=== PATIENT | male | born 1965 | race Caucasian/White ===

== ENCOUNTER → 2024-02-16 08:41 | Outpatient (REF) | payer BC, SELFPAY ==
[2024-02-16 10:11] LABS: % Basophils 0.9 % (0-2); % Eosinophils 3.9 % (0-6); % Immature Granulocytes 0.5 % (0-0.5); % Lymphocytes 10.2 % (20.5-51.1); % Monocytes 14.4 % (1.7-9.3); % Neutrophils 70.1 % (42.2-75.2); Absolute Eosinophils 0.2 10^3/uL (0-0.7); Absolute Lymphocytes 0.4 10^3/uL (1.2-3.4); Absolute Monocytes 0.6 10^3/uL (0.1-0.6); Hematocrit 35.1 % (39.0-52.0); Hemoglobin 11.3 g/dL (13.0-18.0); Mean Corp Hgb Conc. 32.2 g/dL (33.0-37.0); Mean Corpuscular Hgb 31.2 pg (27.0-31.0); Nucleated Red Blood Cells % 0 % (-); Platelet Count 303 10^3/uL (130-400); Red Blood Cell Count 3.62 10^6/uL (4.70-6.10); Red Cell Dist. Width 14.1 % (11.5-14.5); White Blood Cell Count 4.3 10^3/uL (4.8-10.8)
[2024-02-16 10:25] LABS: ALT (SGPT) 29 U/L (0-50); AST (SGOT) 29 U/L (17-59); Albumin 3.9 g/dl (3.5-5.0); Alkaline Phosphatase 106 U/L (38-126); Blood Urea Nitrogen 23 mg/dl (9-20); Calcium 9.5 mg/dl (8.4-10.2); Carbon Dioxide 29 mmol/L (22-30); Chloride 104 mmol/L (98-107); Glucose 97 mg/dl (70-99); HDL Cholesterol 41 mg/dl; LDL Cholesterol, Calculated 85 mg/dl; Potassium 5.3 mmol/L (3.5-5.1); Sodium 140 mmol/L (135-145); Total Bilirubin 0.5 mg/dl (0.2-1.3); Total Cholesterol 148 mg/dl (50-199); Total Protein 6.9 g/dl (6.3-8.2); Triglyceride 114 mg/dl (10-149); Very Low Density Lipoprotein 22 mg/dl (0-30); eGFR > 60.00
[2024-02-16 10:31] LABS: Free T4 1.26 ng/dl (0.78-2.19)
[2024-02-16 10:45] LABS: PSA, Total - Screen 0.32 ng/ml (0.0-4.0); TSH 1.97 uIU/ml (0.47-4.68)
== END ==
LOC: REG 08:41
PROVIDERS: ATTENDING PHYSICIAN Family Medicine; REFERRING PHYSICIAN Family Medicine Geriatric Medicine
DX: C61 Malignant neoplasm of prostate (principal); Z00.00 Encounter for general adult medical examination without abnormal findings; I10 Essential (primary) hypertension; R73.03 Prediabetes; N52.01 Erectile dysfunction due to arterial insufficiency
CPT/HCPCS: 36415; 80053; 80061; 83036; 84439; 84443; 85025; G0103

== ENCOUNTER → 2024-06-09 16:11 | Outpatient (REF) | payer BC, SELFPAY ==
[2024-06-09 20:37] LABS: PSA, Total - Diagnostic 0.11 ng/ml (0.0-4.0)
[2024-06-11 21:03] LABS: % Free Testosterone 1.7 % (1.6-2.9); Free Testosterone 68 pg/mL (47-244); Sex Hormone Binding Globulin 37 nmol/L (19-76); Total Testosterone 395 ng/dL (300-890)
== END ==
LOC: REG 16:11
PROVIDERS: ATTENDING PHYSICIAN Family Medicine
DX: C61 Malignant neoplasm of prostate (principal); Z79.818 Long term (current) use of other agents affecting estrogen receptors and estrogen levels
CPT/HCPCS: 36415; 84153; 84270; 84402; 84403

== ENCOUNTER 2024-06-09 16:12 | Outpatient (RCR) | payer BC, SELFPAY | END 2024-06-09 23:59 | disposition home or self-care (01) | LOC: RPT 16:12 | PROVIDERS: ATTENDING PHYSICIAN Family Medicine Geriatric Medicine | DX: M62.89 Other specified disorders of muscle (principal); Z73.6 Limitation of activities due to disability | CPT/HCPCS: 97110; 97112; 97161; 97530 ==

== ENCOUNTER 2024-06-30 16:25 | Outpatient (RCR) | payer BC, SELFPAY | END 2024-06-30 23:59 | disposition home or self-care (01) | LOC: RPT 16:25 | PROVIDERS: ATTENDING PHYSICIAN Family Medicine Geriatric Medicine | DX: M62.89 Other specified disorders of muscle (principal); Z73.6 Limitation of activities due to disability | CPT/HCPCS: 97110; 97112; 97140; 97530 ==

== ENCOUNTER 2024-07-24 15:13 | Emergency (ER) | payer BC, SELFPAY ==
[2024-07-24 15:23] VITALS: BP 155/99
--- NOTE | 2024-07-24 16:22 | ED.GENMED ---
History of Present Illness
General
Chief Complaint: Extremity Pain (non-traumatic)
Source: patient
Exam Limitations: none
Time Seen by Provider: 07/24/24 15:57
Nursing documentation reviewed up to this point in time: agreed with
History of Present Illness
History of Present Illness:
Patient is a 59-year-old male presenting with left ankle injury. Patient states about an hour or so ago he was blowing leaves in his yard when he accidentally stepped in a small ditch inverting his left ankle. Patient was able to catch himself and
he did not fall to the ground. Patient denies any head strike or sustaining other injuries. Patient presents with pain in his left ankle, worse with range of motion. He has been able to ambulate although this does cause pain. Patient denies any
numbness/tingling of left ankle/foot.
No other concerns today.
Past History
Past History
ED Past Medical History: HTN and Other (Kidney stones); Negative Hypercholesterolemia, IDDM or NIDDM
Social History
Tobacco: Non-smoker
Review of Systems
Review of Systems
Allergies reviewed?: Yes
All Other Systems: ROS reviewed and negative except as documented in HPI and ROS
Phy Exam
Physical Exam
Physical Exam:
Vitals: Hypertensive, otherwise vital signs stable. Afebrile
General: Patient is well appearing, no acute distress
Skin: Warm and dry, no rashes or lesions
Head: Normocephalic, atraumatic
Throat: Protecting airway
Neck: Normal ROM, no cervical spine tenderness
Cardiac: Regular rate
Pulm: No apparent respiratory distress
Abdomen: Nondistended
Extremities: Tenderness and edema of left lateral malleolus. No tenderness of left medial malleolus. No tenderness at base of left fifth metatarsal head of left fibula. No midfoot tenderness or calcaneal tenderness. Left Achilles intact.
Palpable DP pulse left lower extremity. Left lower extremity neurovascular intact. Left knee atraumatic nontender full range of motion.
Neuro: Grossly intact
Psychiatric: Normal affect.
Course
Orders/Labs/Results
Orders:
Orders
07/24/24 15:26
Ankle, left 3 view CR [CR Ankle - Left Min 3 Views ] Urgent
Comment:
Reason For Exam: pain injury
07/24/24 16:21
Splints/Slings/Crut- Treatment ONCE
Location: Left
Type of Splint: Short Leg
Comment: w/ sugar tong
Vital Signs
Initial and Last Documented VS:
Initial Vital Signs
Temp Pulse Resp BP Pulse Ox
98.0 F 86 16 155/99 100
07/24/24 15:23 07/24/24 15:23 07/24/24 15:23 07/24/24 15:23 07/24/24 15:23
Last Documented Vital Signs
Temp Pulse Resp BP Pulse Ox
98.0 F 90 19 146/80 100
07/24/24 15:23 07/24/24 17:13 07/24/24 17:13 07/24/24 17:13 07/24/24 15:23
MDM/Problems Addressed
Differential Diagnosis Includes:
Not limited to: Ankle sprain, ankle fracture, foot sprain, foot fracture, Achilles tendon rupture, etc.
MDM/Problems Addressed:
59-year-old male presenting with left ankle pain following ankle inversion injury just prior to arrival. No head strike or other associated injuries. This was a mechanical trip and fall. Hypertensive, otherwise vital signs stable. Physical exam
as above. Patient does have swelling and tenderness over left lateral malleolus. No pain of left foot, base of left fifth metatarsal, or head of left fibula. Left knee atraumatic and nontender. Left lower extremity neurovascular intact. No
evidence of head or neck trauma. An x-ray was obtained which shows a small fracture of the distal fibula without displacement. Patient will be placed in a posterior short leg, sugar-tong splint and given crutches. Contact information given for
orthopedics for follow-up. Patient will call in the morning to schedule. Advised patient to remain nonweightbearing until seen by orthopedics. Advised rest, ice, elevation. Return precautions discussed with patient. Patient stable for
discharge. Case discussed with attending physician.
Chronic conditions affecting care:
N/A
Acute Exacerbation and/or Progression of Chronic Illness:
N/A
*Radiology
Radiology exam reviewed: preliminary read by ED provider (Left distal fibular fracture) and radiology read reviewed (Distal fibular fracture)
*Pulse Oximetry
Patient hypoxic: no
*EKG
Interpreted by ED Provider?: NA
*Medical Resident Interpretation
Rate: Medical Resident- N/A
*Critical Care Note
Total Time (30-74mins, 75-104mins- exclusive of procedures): Not Applicable
ED Attending Note
-
Portions of this chart may have been created with voice recognition software.� Occasional wrong word or��sound alike� substitutions may have occurred due to the inherent limitations of voice recognition software.
Discharge Plan
Departure
Patient Disposition: Home (Routine Discharge)
Date of Disposition: 07/24/24
Time of Disposition: 16:25
Patient with high blood pressure during this ER visit?: Yes
Condition: Good
Covid-19: Not Applicable
Discharge Problem:
Closed fracture of distal end of left fibula
Instructions: Ankle Fracture ED, BLOOD PRESSURE
Prescriptions:
No Action
lisinopril 2.5 MG tablet
2.5 mg PO DAILY Qty: 90 5RF
metoprolol succinate 50 mg Tablet Extended Release 24 Hr
50 mg PO DAILY
atorvastatin 80 MG tablet
80 mg PO QPM
aspirin 81 MG tablet,chewable
81 mg PO DAILY
naproxen sodium [Aleve] 220 mg capsule
440 mg PO BID PRN (Reason: pain) Qty: 1 0RF
tramadol 50 mg tablet
50 mg PO TID PRN (Reason: severe pain) Qty: 10 0RF
Referrals:
Cheryl Garcia MD [Family Provider] -
Ibrahima Villela MD [Active] - Follow up in 2-3 days
Activity Restrictions/Additional Instructions:
RETURN TO THE EMERGENCY DEPARTMENT WITH ANY NUMBNESS/TINGLING IN LEFT LEG/FOOT, SIGNIFICANT SWELLING IN LEFT ANKLE/FOOT, INTRACTABLE PAIN, OR ANY OTHER CONCERNS
-As discussed�your x-ray in the emergency department showed a small fracture of your left ankle
-You should remain nonweightbearing and utilize crutches until you are seen by orthopedics. Splint must stay on. You should continue to ice, left leg as often as possible. You can take Tylenol/Motrin as needed for discomfort.
-Follow-up with orthopedics in the next few days for further evaluation/management. The contact information has been provided for you above.
Monitor your symptoms closely and return to the emergency department with any acute worsening/new symptoms
Interventions
Interventions:
*Risk Screen - Suicide Last Done: 07/24/24 17:10
*General Assessment Last Done: 07/24/24 17:10
*Neglect/Abuse Screening Last Done: 07/24/24 15:47
*Nursing Disposition Last Done: 07/24/24 17:13
ED-Skin Assessment Last Done: 07/24/24 15:46
ED-Musculoskeletal Assessment Last Done: 07/24/24 15:46
Discharge Date and Time
Discharge Date/Time: 07/24/24 17:14
Print Language: SLOVAK
[2024-07-24 17:13] VITALS: BP 146/80
== END 2024-07-24 17:14 | disposition home or self-care (01) ==
LOC: EMR 15:13
PROVIDERS: EMERGENCY PHYSICIAN Emergency Medicine; FAMILY PHYSICIAN Family Medicine
DX: S82.832A Other fracture of upper and lower end of left fibula, initial encounter for closed fracture (principal); X50.1XXA Overexertion from prolonged static or awkward postures, initial encounter; I10 Essential (primary) hypertension
CPT/HCPCS: 99283; 29515; 73610

== ENCOUNTER 2024-08-04 17:21 | Outpatient (RCR) | payer BC, SELFPAY | END 2024-08-04 23:59 | disposition home or self-care (01) | LOC: RPT 17:21 | PROVIDERS: ATTENDING PHYSICIAN Family Medicine Geriatric Medicine | DX: M62.89 Other specified disorders of muscle (principal); Z73.6 Limitation of activities due to disability | CPT/HCPCS: 97110 ==

== ENCOUNTER 2024-08-25 18:20 | Outpatient (RCR) | payer BC, SELFPAY | END 2024-08-25 23:59 | disposition home or self-care (01) | LOC: RPT 18:20 | PROVIDERS: ATTENDING PHYSICIAN Family Medicine Geriatric Medicine | DX: M62.89 Other specified disorders of muscle (principal); Z73.6 Limitation of activities due to disability; C61 Malignant neoplasm of prostate; Z90.79 Acquired absence of other genital organ(s) | CPT/HCPCS: 97110 ==

== ENCOUNTER → 2024-09-13 07:51 | Outpatient (REF) | payer BC, SELFPAY ==
[2024-09-13 09:19] LABS: PSA, Total - Screen 0.11 ng/ml (0.0-4.0)
[2024-09-14 19:38] LABS: % Free Testosterone 1.8 % (1.6-2.9); Free Testosterone 61 pg/mL (47-244); Sex Hormone Binding Globulin 34 nmol/L (19-76); Total Testosterone 339 ng/dL (300-890)
== END ==
LOC: REG 07:51
PROVIDERS: ATTENDING PHYSICIAN Family Medicine Geriatric Medicine
DX: C61 Malignant neoplasm of prostate (principal); Z79.818 Long term (current) use of other agents affecting estrogen receptors and estrogen levels
CPT/HCPCS: 36415; 84270; 84402; 84403; G0103

== ENCOUNTER → 2024-09-27 08:14 | Outpatient (REF) | payer BC, SELFPAY ==
[2024-09-27 09:35] LABS: NT-proBNP 49.6 pg/ml
[2024-09-27 10:08] LABS: Blood Urea Nitrogen 29 mg/dl (9-20); Calcium 9.7 mg/dl (8.4-10.2); Carbon Dioxide 28 mmol/L (22-30); Chloride 104 mmol/L (98-107); Glucose 116 mg/dl (70-99); Potassium 5.2 mmol/L (3.5-5.1); Sodium 144 mmol/L (135-145); eGFR 38.21
== END ==
LOC: REG 08:14
PROVIDERS: ATTENDING PHYSICIAN Internal Medicine Interventional Cardiology; FAMILY PHYSICIAN Family Medicine
DX: I10 Essential (primary) hypertension (principal)
CPT/HCPCS: 36415; 80048; 83880

== ENCOUNTER → 2024-10-13 16:34 | Outpatient (REF) | payer BC, SELFPAY ==
[2024-10-13 17:55] LABS: Blood Urea Nitrogen 54 mg/dl (9-20); Calcium 9.3 mg/dl (8.4-10.2); Carbon Dioxide 28 mmol/L (22-30); Chloride 103 mmol/L (98-107); Glucose 123 mg/dl (70-99); Potassium 4.7 mmol/L (3.5-5.1); Sodium 142 mmol/L (135-145); eGFR 19.52
== END ==
LOC: REG 16:34
PROVIDERS: ATTENDING PHYSICIAN Physician Assistant; FAMILY PHYSICIAN Family Medicine
DX: I25.2 Old myocardial infarction (principal); I10 Essential (primary) hypertension
CPT/HCPCS: 36415; 80048

== ENCOUNTER → 2024-10-26 16:12 | Outpatient (REF) | payer BC, SELFPAY ==
[2024-10-26 17:34] LABS: Blood Urea Nitrogen 57 mg/dl (9-20); Calcium 9.1 mg/dl (8.4-10.2); Carbon Dioxide 26 mmol/L (22-30); Chloride 106 mmol/L (98-107); Glucose 144 mg/dl (70-99); Potassium 5.3 mmol/L (3.5-5.1); Sodium 145 mmol/L (135-145); eGFR 18.87
== END ==
LOC: REG 16:12
PROVIDERS: ATTENDING PHYSICIAN Physician Assistant; FAMILY PHYSICIAN Family Medicine
DX: N35.919 Unspecified urethral stricture, male, unspecified site (principal)
CPT/HCPCS: 36415; 80048

== ENCOUNTER 2024-11-10 17:58 | Outpatient (RCR) | payer BC, SELFPAY | END 2024-11-10 23:59 | disposition home or self-care (01) | LOC: RPT 17:58 | PROVIDERS: ATTENDING PHYSICIAN Family Medicine Geriatric Medicine | DX: M62.89 Other specified disorders of muscle (principal); Z73.6 Limitation of activities due to disability; C61 Malignant neoplasm of prostate; Z90.79 Acquired absence of other genital organ(s); R33.9 Retention of urine, unspecified | CPT/HCPCS: 97110; 97140 ==

== ENCOUNTER 2024-11-23 20:37 | Inpatient (IN) | payer BC, SELFPAY ==
[2024-11-23 16:06] VITALS: BP 211/125
[2024-11-23 16:42] LABS: % Basophils 0.6 % (0-2); % Immature Granulocytes 0.2 % (0-0.5); % Lymphocytes 9.5 % (20.5-51.1); % Monocytes 10.8 % (1.7-9.3); % Neutrophils 75.9 % (42.2-75.2); Absolute Eosinophils 0.2 10^3/uL (0-0.7); Absolute Lymphocytes 0.6 10^3/uL (1.2-3.4); Absolute Monocytes 0.7 10^3/uL (0.1-0.6); Hematocrit 33.9 % (39.0-52.0); Hemoglobin 11.2 g/dL (13.0-18.0); Mean Corpuscular Hgb 29.4 pg (27.0-31.0); Mean Platelet Volume 9.7 fL (7.4-10.4); Nucleated Red Blood Cells % 0 % (-); Platelet Count 224 10^3/uL (130-400); Red Blood Cell Count 3.81 10^6/uL (4.70-6.10); Red Cell Dist. Width 13.9 % (11.5-14.5); White Blood Cell Count 6.6 10^3/uL (4.8-10.8)
[2024-11-23 17:00] LABS: ALT (SGPT) 21 U/L (0-50); AST (SGOT) 21 U/L (17-59); Albumin 4.5 g/dl (3.5-5.0); Alkaline Phosphatase 96 U/L (38-126); Blood Urea Nitrogen 66 mg/dl (9-20); Calcium 9.2 mg/dl (8.4-10.2); Carbon Dioxide 23 mmol/L (22-30); Chloride 107 mmol/L (98-107); Glucose 116 mg/dl (70-99); Potassium 5.2 mmol/L (3.5-5.1); Sodium 141 mmol/L (135-145); Total Bilirubin 0.5 mg/dl (0.2-1.3); Total Protein 7.4 g/dl (6.3-8.2); eGFR 14.83
[2024-11-23 17:43] VITALS: BMI 35.3
[2024-11-23 17:45] VITALS: BP 180/98
[2024-11-23 18:00] VITALS: BP 176/93
--- NOTE | 2024-11-23 18:57 | ED.GENMED ---
History of Present Illness
General
Chief Complaint: Abnormal Lab Value
Source: patient and spouse
Time Seen by Provider: 11/23/24 17:22
History of Present Illness
History of Present Illness:
59-year-old male with history of hypertension, hyperlipidemia, coronary disease, obstructive sleep apnea and prostate cancer treated with radiation. Patient presents with outpatient labs that showed renal failure. Of note, the patient had a bump
in his creatinine started back in September where bumped to 2.0 and then 3.5. Patient states he is not really aware of these numbers and has not seen a kidney specialist. He has been seeing a urologist and they advised him to start straight cathing
himself over the last few weeks. Patient states he has not been drinking a lot of fluids because he is afraid to have to straight cath himself throughout the night. Patient states he has been getting normal urine out. No fevers. No vomiting.
states that he has been seeing the urologist. Has not seen a sash installer. These labs were routine labs being ordered by cardiology
Past History
Past History
ED Past Medical History: CAD, HTN, Hypercholesterolemia and Other (Kidney stones, obstructive sleep apnea, prostate cancer)
Social History
Tobacco: Non-smoker
Phy Exam
Physical Exam
Physical Exam:
CONSTITUTIONAL Patient alert and oriented to person, place and time. Well-appearing. Vital signs reviewed.
HEAD atraumatic, normocephalic.
EYES eyelids normal to inspection, Extraocular muscles intact, Conjunctiva normal, Sclera normal.
NECK normal range of motion, Trachea midline, no jugular venous distention.
RESPIRATORY CHEST No respiratory distress noted, Chest expansion equal, Bilateral breath sounds clear.
CARDIOVASCULAR regular rate and rhythm, Heart sounds normal.
BACK normal inspection, no obvious deformities
UPPER EXTREMITY range of motion normal, Motor strength normal, no cyanosis, no edema.
LOWER EXTREMITY range of motion normal, Motor strength normal, no cyanosis, no edema.
NEURO Speech normal, No focal motor deficits, Jeff coma scale 15, Memory normal, Cranial Nerves intact to screening exam.
SKIN skin warm, dry, and normal in color.
Course
Orders/Labs/Results
Orders:
Orders
11/23/24 16:10
Electrocardiogram (*1) Urgent
Reason for Study: Hypertension, Benign
EKG- Treatment ONCE
11/23/24 16:18
Complete Blood Count/With Diff Urgent
Comprehensive Metabolic Panel Urgent
11/23/24 19:01
Urinalysis Reflex To Culture Urgent
Date Specimen was Collected: 11/23/24
Time Specimen was Collected: 19:01
Abnormal Lab Results
11/23/24
16:18
RBC 3.81 L 10^6/uL
(4.70-6.10)
Hgb 11.2 L g/dL
(13.0-18.0)
Hct 33.9 L %
(39.0-52.0)
Absolute Lymphs (auto) 0.6 L 10^3/uL
(1.2-3.4)
Absolute Monos (auto) 0.7 H 10^3/uL
(0.1-0.6)
Neutrophils % 75.9 H %
(42.2-75.2)
Lymphocytes % 9.5 L %
(20.5-51.1)
Monocytes % 10.8 H %
(1.7-9.3)
Potassium 5.2 H mmol/L
(3.5-5.1)
BUN 66 H mg/dl
(9-20)
Creatinine 4.4 H* mg/dL
(0.7-1.3)
Glucose 116 H mg/dl
(70-99)
11/23/24 16:18
11/23/24 16:18
Vital Signs
Initial and Last Documented VS:
Initial Vital Signs
Temp Pulse Resp BP Pulse Ox
98.5 F 94 18 211/125 98
11/23/24 16:06 11/23/24 16:06 11/23/24 16:06 11/23/24 16:06 11/23/24 16:06
Last Documented Vital Signs
Temp Pulse Resp BP Pulse Ox
98.5 F 82 9 176/93 98
11/23/24 16:06 11/23/24 18:15 11/23/24 18:15 11/23/24 18:00 11/23/24 18:15
MDM/Problems Addressed
MDM/Problems Addressed:
Acute renal failure, acute severe uncontrolled hypertension
*Pulse Oximetry
Patient hypoxic: no
*EKG
Interpreted by ED Provider?: Yes
Interpretation: normal
Rate: normal
Rhythm: sinus
[place]: normal axis
Ischemia: no ischemia
*Primary Care Nurse Interpretation
Rate: normal
Interpretation: normal
Rhythm: sinus
*Critical Care Note
Total Time (30-74mins, 75-104mins- exclusive of procedures): Not Applicable
Data Reviewed
Review of Other/Old Records Reveals: Labs
Source: patient and spouse
Prescriptions/Medications Considered But Not Given:
Considered antihypertensives but no blood pressure improving. Patient states he often does have high blood pressure when he comes to the hospital
Patient Management
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 Continue straight cath and gentle fluids)
Escalation/DeEscalation of care consider admission/obs:
Awake and alert. Patient is performing a straight cath urine emergency department. Will watch the output. Admit. Check ultrasound the kidneys
ED Attending Note
-
Portions of this chart may have been created with voice recognition software.� Occasional wrong word or��sound alike� substitutions may have occurred due to the inherent limitations of voice recognition software.
Discharge Plan
Departure
Patient Disposition: Admit
Date of Disposition: 11/23/24
Time of Disposition: 19:26
Admit to: Med/Surg
Presentation/result/management discussed w/ accepting MD/DO: Hospitalist
Discharge Problem:
Acute renal failure, Uncontrolled hypertension
Prescriptions:
No Action
metoprolol succinate 50 mg Tablet Extended Release 24 Hr
50 mg PO DAILY
atorvastatin 80 MG tablet
80 mg PO QPM
aspirin 81 MG tablet,chewable
81 mg PO DAILY
naproxen sodium [Aleve] 220 mg capsule
440 mg PO BID PRN (Reason: pain) Qty: 1 0RF
tamsulosin 0.4 mg Capsule
0.4 mg PO BID
ezetimibe 10 mg Tablet
10 mg PO DAILY
mirabegron 50 mg Tablet Extended Release 24 Hr
50 mg PO DAILY
Referrals:
Cheryl Garcia MD [Family Provider] -
Interventions
Interventions:
*Risk Screen - Suicide Last Done: 11/23/24 16:06
*General Assessment Last Done: 11/23/24 17:44
*Neglect/Abuse Screening Last Done: 11/23/24 16:06
*ED- Fall Risk Assessment Last Done: 11/23/24 17:44
*ED COVID-19 Vaccine History Last Done: 11/23/24 16:06
Discharge Date and Time
Print Language: HUNGARIAN
--- NOTE | 2024-11-23 19:41 | HPS.HSE ---
Addendum entered and electronically signed by Placido Mckinney DO 11/23/24 21:32:
Patient seen and examined independently. Agree with findings and plan as set forth by CHING Perez.
Patient is a59y M with PMH significant for hypertension and prostate cancer s/p XRT who presents to ED for evaluation after outpatient labs that showed progressive renal function decline. Patient notes that he developed difficulties with
urination in the Summer on 2023. He initially had evidence of urinary retention and had a indwelling Miller for a short time. He has been followed by Dr. Morataya and started a self-cath regimen about one month ago. He was advised to change his
frequency to q3h; however, he did not have sufficient supplies to do so. In an attempt to conserve supplies while awaiting insurance approval - patient decreased his oral fluid intake and compromised on cath schedule to about 4-5 times daily.
Patient denies any specific complaints. He has no fevers / chills, N/V, abdominal pain or flank pain.
He notes that urine has not significantly changes in color / quantity.
He does void a small amount at times between cathing.
Ass:
SRI / CKD - Unknown Stage
Hyperkalemia
Chronic Urinary Retention
Prostate Cancer s/p XRT
ASCVD
Hypertension
ALAN
Plan:
Admit for further evaluation and treatment.
Suspect combination of pre and post-renal etiologies for renal impairment.
US done but report is still pending.
Reviewed with Nephrology and Urology.
IVFs overnight.
Continue self-cath regimen for now.
Hold Myrbetriq. Continue tamsulosin.
Continue current CV med regimen.
Follow for changes in renal function.
Original Note:
Family Physician
-
Family Physician: Cheryl Garcia
Chief Complaint
-
eevated creatine
History of Present Illness
59-year-old male with history of hypertension, hyperlipidemia, coronary disease, obstructive sleep apnea and prostate cancer treated with radiation. Patient presents with outpatient labs that showed renal failure.patient with history of prostate
cancer s/p proctectomy and radiation. after few months, he was noted to have trouble urinating for which he underwent balloon therapy. he had miller cath for some time. then he was trouble fully empty the bladder. he was advised to straight cath. he
is been doing straight cath 3-4 times a days. his urology asked him to do every 3 hours, but due to lack of supplies, he is only doing 3-4 times. he is thirsty, he has not been drinking a lots of fluids because he is is afraid to have to to
straight cath himself throughout the night. Patient states he has been getting normal urine out. his dump worker ordered routine lab and was noted to have elevated creatine which prompted him to come to the ER. mirabegron was added by urology few
weeks ago. patient stated very tired, nauseous. denied fever, chills, chest pain,sob. denied abdominal pain,vomiting or diarrhea. denied hematuria.
upon arrival he was noted to have creatinine of 4.4. patient received fluids in ER.admitting for further management.
Medical History
Past Medical History
Past Medical History: Reports Other
Additional Past Medical History:
HTN
hydronephrosis
urinary calculi
cad
kidney stones
Alan
prostate ca
Past Surgical History: Reports Other
Additional Past Surgical History:
wisdom teeth extraction
kidney stone retrieval
coronary artery bypass graft
prostatectomy and lymphadenectomy
Social History
Tobacco: Former Smoker
Alcohol: None
Drug: None
Personal: Single
Living: Other (girlfriend)
Employment: Employed
Family History
Family History: Not pertinent
Allergies / Home Medications
Allergies reflects when Allergies were last updated in [facility].
Home Medications with original date entered in [facility]
Allergy/Medication List:
Allergies
Allergy/AdvReac Type Severity Reaction Status Date / Time
pollen extracts Allergy nasal Verified 11/23/24 16:09
congestion
Home Medications
metoprolol succinate 50 mg tablet,extended release 24 hr 25 mg PO BID Blood Pressure 06/04/23
aspirin 81 mg chewable tablet 81 mg PO DAILY Blood Clot Prevention/Tx 06/11/23
atorvastatin 80 mg tablet 80 mg PO QPM High Cholesterol 06/11/23
ezetimibe 10 mg tablet 10 mg PO DAILY 11/23/24
mirabegron 50 mg tablet,extended release 24 hr 50 mg PO DAILY 11/23/24
tamsulosin 0.4 mg capsule 0.4 mg PO BID 11/23/24
Review of Systems
-
Constitutional: Reports No Symptoms
EENT: Reports No Symptoms
Respiratory: Reports No Symptoms
Cardiac: Reports No Symptoms
Abdomen/GI: Reports No Symptoms
: Reports No Symptoms
Musculoskeletal: Reports No Symptoms
Skin: Reports No Symptoms
Neurological: Reports Weakness
Endocrine: Reports No Symptoms
Hematologic/Lymphatic: Reports No Symptoms
Psych: Reports No Symptoms
Physical Exam
Vital Signs
Vital Signs
Temp Pulse Resp BP Pulse Ox
98.5 F 82 9 176/93 98
11/23/24 16:06 11/23/24 18:15 11/23/24 18:15 11/23/24 18:00 11/23/24 18:15
Physical Exam
General: Well Developed, Well Nourished and No Apparent Distress
HEENT: NormoCephalic, Moist mucous membranes and Atraumatic
Respiratory: Clear
Cardiac: S1/S2 and Regular Rhythm; No Murmur or Rub
GI: Soft, Non Tender, Non Distended and Normal Bowel Sounds; No Organomegaly
Rectal: Deferred by Provider
Musculoskeletal: No Clubbing, No Cyanosis and No Edema
Skin: No Rash
Neuro: AO x 3 and Nonfocal/grossly intact
Psych: Calm
Laboratory Results
-
11/23/24 16:18
11/23/24 16:18
Laboratory Results
Total Bilirubin 0.5 mg/dl (0.2-1.3) 11/23/24 16:18
AST 21 U/L (17-59) 11/23/24 16:18
ALT 21 U/L (0-50) 11/23/24 16:18
Alkaline Phosphatase 96 U/L (38-126) 11/23/24 16:18
Data Reviewed
-
Lab Data: Labs Reviewed by me
Impression/Plan
-
#acute kidney injury/hyperkalemia likely dehydration
-cr 4.4, K 5.2
-fluids continued
-BMP in am
-nephrology consulted
-renal US ordered
#CAD
#CABG
#cardiac stents
-asa continued
#HLD
-statin continued
#HTN
-metoprolol continued with hold parameter
#BPH
#hxt of urinary retention
#hxt of prostate cancer s/p radiation and prostatectomy
-Flomax continued
-hold mirabegron
#DVT Prophylaxis
-heparin sq
#CODE status
-full code
[2024-11-23 19:45] VITALS: BP 156/95
[2024-11-23 19:51] LABS: Urine Albumin Negative (Neg - Trace); Urine Bilirubin Negative (Negative); Urine Character Clear (Clear); Urine Color Yellow; Urine Glucose Negative (Negative); Urine Ketone Negative (Negative); Urine Leukocyte 3+ (Negative); Urine Nitrite Negative (Negative); Urine Occult Blood 4+ (Negative); Urine Specific Gravity 1.005 (<1.030); Urine Urobilinogen Negative (Neg - 1+)
--- NOTE | 2024-11-23 19:51 | EDRN ---
Pt with hx prostate cancer, prostatectomy and radiation. Pt has been having trouble emptying his bladder, has been straight cathing himself for few weeks. Pt had routine lab work done and was told his kidney function was elevated and instructed to
go to the hospital for evaluation. Pt denies hx of kidney issues. Pt making normal amount urine - clear. Last straight cath in ED = 550ml, specimen sent. Pt denies fever/chills/cough, abd pain, nausea/vomiting. 'I feel fine.'
[2024-11-23 19:59] LABS: Urine Bacteria Few (Negative); Urine Squamous Cell 0-2 /LPF (Few)
[2024-11-23 20:00] VITALS: BP 162/96
[2024-11-23 22:15] VITALS: BP 168/94; BMI 36.4
[2024-11-23] MEDS: NSS 1000 IV (22:41)
[2024-11-24] VITALS (7 sets, daily range): BP systolic 149–179; BP diastolic 91–115
--- NOTE | 2024-11-24 00:10 | PTCARENOTE ---
Pt admitted to 1 Acute. AAOx3. No c/o pain. Pt self straight cath himself. Pt was bladder scanned post void. Pt has 375 ml residual. Will scan q6. pt appears comfortable in bed and call hopper within reach.
--- NOTE | 2024-11-24 06:07 | CON.MD ---
Consultation - Medical
-
see dictated note
pt with prostate ca- underwent robotic prostatectomy with dr smart in 2022- T3 disease
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
developed bladder neck contracture- had procedure at [facility] in aug 2024- since then has had difficulty emptying bladder requring q3-4 hr cath
pt had cysto at [facility] about 3 weeks ago- reports BNC was open and small stone in bladder
he has had no problems with self cath
says last psa was under 1
has been making normal amounts of urine
baseline cr around 2- in sep was 3.5- now up to 4.5
u/s showed hydro- ct- hydro with ureteral dilation down to thickened/partially distended bladder- small stone in bladder
16 chinese miller placed without difficulty- 300cc of clear urine returned
plan
prostate cancer s/p prostatectomy and xrt- check psa
acute on chronic renal insuff- at least in part due to probable partial retention and neurogenic bladder- miller placed- await official read- trend urine output and cr
will follow
[2024-11-24] MEDS: ZETIA 10 MG PO (07:33)
[2024-11-24] MEDS: FLOMAX 0.4 MG PO ×2 (07:33→19:56)
[2024-11-24] MEDS: HEPARIN 5000 UNITS SC ×2 (07:34→19:56)
[2024-11-24] MEDS: LOW STRENGTH ASPIRIN 81 MG PO (07:34)
[2024-11-24] MEDS: TOPROL XL 25 MG PO ×2 (07:34→19:55)
[2024-11-24] MEDS: NSS 1000 IV ×3 (07:35→19:57)
[2024-11-24 09:40] LABS: Blood Urea Nitrogen 58 mg/dl (9-20); Carbon Dioxide 23 mmol/L (22-30); Chloride 107 mmol/L (98-107); Estimated Creatinine Clearance 28 ml/min; Glucose 101 mg/dl (70-99); Sodium 141 mmol/L (135-145); eGFR 15.69
[2024-11-24 09:57] LABS: PSA, Total - Diagnostic < 0.06 ng/ml (0.0-4.0)
[2024-11-24 10:49] LABS: Urine Sodium 60 mmol/L (30-90)
--- NOTE | 2024-11-24 10:54 | W.PN.HOSP.TC ---
Addendum entered and electronically signed by Zeeshan Samuel MD 11/24/24 16:13:
I saw and evaluated the patient. I reviewed the resident�s note and agree with findings and plan as documented in the resident�s note except for changes in my documentation.
59-year-old male with abnormal outpatient labs patient was seen by urology and started on self-catheterization regimen 1 month ago he was advised to do it every 3 hours but did not have the supply.
Seen earlier today. Late documentation
I saw and evaluated the patient. I reviewed the resident�s note and agree with findings and plan as documented in the resident�s note except for changes in my documentation
CAT scan-5 to 6 mm stone at or just to be on the left distal UVJ/bladder trigone. Partially duplicated left renal collecting system with 5 into 6 into 7 mm stone at the superior pole of the ureterovesical junction and may reflect additional
obstructing stone. Mild to moderate bilateral hydronephrosis and hydroureter. No right ureteral stone. Nonobstructing stones in the kidneys bilaterally. Mild bladder wall thickening and adjacent edema.
CVS: S1-S2 normal
Chest: CTA B/L
Abdomen: Soft, NT / Bowel sounds present
Extremities: No edema
# Acute kidney injury on CKD unknown stage
Hyperkalemia
Continue IV fluids
Possibly postrenal reasons as well
Russ placed.
Hold Myrbetriq and continue tamsulosin
Nephrolithiasis with hydronephrosis--on imaging however per discussion with urology no obstruction in the ureters
Follow creatinine and potassium
Urine sodium indicates renal reason
Creatinine has been elevated since September-unclear if patient also has CKD
Urology and Nephrology consulted.
# Prostate cancer with history of radiation and prostatectomy
# Coronary disease-with stent and CABG in 2021-continue aspirin, statin, Zetia, metoprolol
# Hyperlipidemia-continue Zetia, statin
# Hypertension-continue metoprolol
# Sleep apnea
# Nephrolithiasis with history of lithotripsy
# Migraines
# Diverticulosis
# Obesity with a BMI of 36
# DVT prophylaxis-subcutaneous heparin
D/W .
Original Note:
Today's Communication/Plan
-
Continue monitoring BMP after placement of Russ. Await final read of CT
Assessment / Plan
Assessment / Plan
Assessment:
59-year-old male with a past medical history of hypertension and prostate cancer for which he underwent robotic prostatectomy with Dr. Lmeus in 2022 then XRT then developed bladder neck contracture after which he had a procedure at [place] 3 weeks
ago, comes to the [facility] due to recent worsening of renal function. Patient had developed evidence of urinary retention after his procedure and was told to self cath around 1 month ago. He was told to do around every 3 hours
but he has been unable to do so due to being unable to afford supplies. Patient has decreased his oral fluid intake and has not been doing his cath is much as he should be. Patient was admitted for further treatment and underwent ultrasound and CT
scan. You started on IV fluids and urology and nephrology were consulted.
Plan:
#SRI secondary to urinary retention and dehydration
-Creatinine trending down from 4.5 to now 4.2
-fluids continued
-Continue monitoring BMP
-nephrology consulted, input appreciated
-renal US results as above
-Russ placed by urology team leading to 300 cc of clear urine
-Will see if draining of urine improves kidney function
-Awaiting final read of CT abdomen pelvis
# History of CAD
# History of CABG
# History of cardiac stents
-asa continued
#HLD
-statin continued
#HTN
-metoprolol continued
#hxt of prostate cancer s/p radiation and prostatectomy
-Flomax continued
-hold mirabegron
DVT Prophylaxis- heparin sq
Full code
Anticipated Discharge: Within 24 hours
Subjective/Interval History
-
Date of Service: November 24, 2024
Patient states that he has been feeling better and that he only has some mild fullness of his suprapubic area with very little tenderness.
Objective Data
-
Labs:
Laboratory Results
11/24/24
08:38
Sodium 141
Potassium 5.0
Chloride 107
Carbon Dioxide 23
BUN 58 H
Creatinine 4.2 H*
Glucose 101 H
Calcium Pending
Vital Signs:
Vital Signs
Temp Pulse Resp BP Pulse Ox
97.9 F 77 18 179/108 98
11/24/24 07:30 11/24/24 07:30 11/24/24 07:30 11/24/24 07:30 11/24/24 07:30
I&O
11/23/24 11/24/24 11/25/24
06:59 06:59 06:59
Intake Total 1620 / 1620 300 / 300
Output Total 3000 / 3000 2000 / 2000
Balance -1380 / -1380 -1700 / -1700
Review of Systems
-
History Source: Patient
Constitutional: Denies Fever, Weight Loss, Fatigue, Sleep Disturbance, Night Sweats or Chills
Respiratory: Denies Cough or Trouble Breathing
Cardiac: Denies Chest Pain or Palpitations
Abdomen/GI: Denies Abdominal Pain, Nausea or Vomiting
Genitourinary: Reports Difficulty Voiding; Denies Dysuria, Flank Pain or Discharge
Skin: Denies Itching or Rash
Endocrine: Reports No Symptoms
Allergy / Immunology: Reports No Symptoms
Physical Exam
-
General: Well Developed, Well Nourished, No Apparent Distress, Comfortable and Conversant
HEENT: Normocephalic and Atraumatic
Respiratory: Clear to Auscultation and Non Labored Respirations
Cardiac: Regular Rhythm and S1/S2; Negative Murmur
GI: Soft, Nontender, Nondistended and Normal Bowel Sounds
Genito-urinary: Supra Pubic Tube (Mild 09/23)
Musculoskeletal: No Clubbing, No Cyanosis and No Edema
Skin: Warm
Neuro: Awake, Alert, Oriented and No Motor Deficits
Psych: Calm
Data Reviewed
-
Ultrasound: Report Reviewed by me, Discussed with Physician and Discussed with Patient
Labs: Labs Reviewed by me, Discussed with Physician and Discussed with Patient
[2024-11-24 11:56] LABS: Calcium 9.3 mg/dl (8.4-10.2)
--- NOTE | 2024-11-24 15:54 | W.CON.NEPH ---
Consultation
-
Date/Time Consultation Requested: 11/23/242201
Date/Time Consultation Performed: 11/24/24 1615
Requesting Provider: Placido Worley
Performing Provider: Sarah Trevizo
Reason for Consultation: SRI with CKD
Medical History
-
History of Present Illness:
59y M with PMH significant for hypertension on metoprolol, HLD on Ezetamibe, statin and prostate cancer proctectomy, s/p XRT. tamsulosin BID who presents to ED for evaluation after outpatient labs that showed progressive renal function decline.
Patient notes that he developed difficulties with urination in the Summer on 2023. He initially had evidence of urinary retention and had a indwelling Miller for a short time. He has been followed by Dr. Morataya with unsuccessful interventions even
at [facility] and started a self-cath regimen about one month ago. He was advised to change his frequency to q3h; however, he did not have sufficient supplies to do so hence he decreased his oral fluid intake and compromised on cath schedule to about 4-5
times daily. He had routine labs done by cardiology and noted cr high at 4.5 and was asked to come to hospital. US shows hydronephrosis more on right. Since admit he put out 5lit of urine, miller was placed by today. Today cr down at 4.2.
Nephrology consulted for SRI.
Patient denies any specific complaints. He has no fevers / chills, N/V, abdominal pain or flank pain. No CP or sob.
Past Medical History
HTN
hydronephrosis
urinary calculi
cad
kidney stones
[place]
prostate ca
Past Surgical History: Other (wisdom teeth extraction kidney stone retrieval coronary artery bypass graft prostatectomy and lymphadenectomy)
Social History
Tobacco: Former Smoker
Alcohol: None
Drug: None
Personal: Single
Employment: Employed
Family History
Family History: Not Pertinent
Allergies / Home Medications
Allergy/AdvReac Type Severity Reaction Status Date / Time
pollen extracts Allergy nasal Verified 11/23/24 16:09
congestion
�Medication �Instructions �Recorded �Confirmed �Type
metoprolol succinate 50 mg 25 mg PO BID Blood Pressure 06/04/23 11/23/24 History
tablet,extended release 24 hr
aspirin 81 mg chewable tablet 81 mg PO DAILY Blood Clot 06/11/23 11/23/24 History
Prevention/Tx
atorvastatin 80 mg tablet 80 mg PO QPM High Cholesterol 06/11/23 11/23/24 History
ezetimibe 10 mg tablet 10 mg PO DAILY 11/23/24 11/23/24 History
mirabegron 50 mg tablet,extended 50 mg PO DAILY 11/23/24 11/23/24 History
release 24 hr
tamsulosin 0.4 mg capsule 0.4 mg PO BID 11/23/24 11/23/24 History
Review of Systems
-
All complete 12 point ROS have been inquired and found negative other than stated in HPI
Physical Exam
Vital Signs
Vital Signs
Temp Pulse Resp BP Pulse Ox
98.1 F 81 18 155/91 97
11/24/24 15:19 11/24/24 15:19 11/24/24 15:19 11/24/24 15:19 11/24/24 15:19
Lab Results
WBC 6.6 10^3/uL (4.8-10.8) 11/23/24 16:18
RBC 3.81 10^6/uL (4.70-6.10) L 11/23/24 16:18
Hgb 11.2 g/dL (13.0-18.0) L 11/23/24 16:18
Hct 33.9 % (39.0-52.0) L 11/23/24 16:18
Plt Count 224 10^3/uL (130-400) 11/23/24 16:18
Sodium 141 mmol/L (135-145) 11/24/24 08:38
Potassium 5.0 mmol/L (3.5-5.1) 11/24/24 08:38
Chloride 107 mmol/L (98-107) 11/24/24 08:38
Carbon Dioxide 23 mmol/L (22-30) 11/24/24 08:38
BUN 58 mg/dl (9-20) H 11/24/24 08:38
Creatinine 4.2 mg/dL (0.7-1.3) H* 11/24/24 08:38
eGFR 15.69 11/24/24 08:38
Glucose 101 mg/dl (70-99) H 11/24/24 08:38
Calcium 9.3 mg/dl (8.4-10.2) 11/24/24 08:38
Albumin 4.5 g/dl (3.5-5.0) 11/23/24 16:18
remal US:
IMPRESSION:
1. Moderate distention of the right intrarenal collecting system, right renal pelvis, and proximal right ureter suggesting MODERATE RIGHT HYDRONEPHROSIS secondary to a right ureteral obstruction.
2. Multiple parapelvic cysts in the left kidney and probable moderate dilatation of the left intrarenal collecting system (less convincing for a ureteral obstruction).
3. Severe diffuse trabeculation and moderate diffuse thickening of the urinary bladder wall.
Physical Exam
General: Awake, Alert, Oriented, AOx3, No Distress and Nontoxic
HEENT: EOMI, Anicteric and Facial Symmetry
Respiratory: Clear, Normal Excursion and Nonlabored Respirations
Cardiac: S1/S2 and Regular Rate/Rhythm
Breast: Deferred by me
Abdomen: Soft, Nontender and Nondistended
Genito-urinary: Clear Urine (miller)
Musculoskeletal: No Cyanosis and No Edema
Skin: No Rash and Warm
Neuro: Nonfocal/Grossly Intact
Psych: Mood/afflect pleasant, Insight/judgement good and Appropriate
Assessment/Plan
-
IMP:
SRI secondary to urinary retention and dehydration
History of CAD
History of CABG
History of cardiac stents
HLD
HTN
hxt of prostate cancer s/p radiation and prostatectomy
neurogenic bladder
h/o K stones
plan:
A/w SRI-cr peak at 4.5, progressive increase cr since Sep
UA with microhematuria-SC sample
suspect prerenal and post obst with neurogenic bladder
US shows hydro more on right now s/p miller per
await CT to result
cont IVF and monitor post obst diuresis
BP high improving now , cont BB
follow labs
k is better
d/w pt , no indication of PM TECHNICIAN
[2024-11-24] MEDS: LIPITOR 80 MG PO (18:18)
[2024-11-24 18:40] LABS: Blood Urea Nitrogen 57 mg/dl (9-20); Calcium 9.3 mg/dl (8.4-10.2); Carbon Dioxide 23 mmol/L (22-30); Chloride 105 mmol/L (98-107); Estimated Creatinine Clearance 31 ml/min; Glucose 114 mg/dl (70-99); Potassium 5.5 mmol/L (3.5-5.1); Sodium 140 mmol/L (135-145); eGFR 18.26
[2024-11-24] MEDS: TYLENOL 650 MG PO (20:04)
[2024-11-24] MEDS: LOKELMA 10 GRAM PO (21:59)
[2024-11-25 03:00] VITALS: BP 145/89
--- NOTE | 2024-11-25 07:14 | W.PN.HOSP.TC ---
Addendum entered and electronically signed by Zeeshan Samuel MD 11/25/24 15:48:
I saw and evaluated the patient. I reviewed the resident�s note and agree with findings and plan as documented in the resident�s note except for changes in my documentation.
59-year-old male with abnormal outpatient labs patient was seen by urology and started on self-catheterization regimen 1 month ago he was advised to do it every 3 hours but did not have the supply.
Seen earlier today. Late documentation
I saw and evaluated the patient. I reviewed the resident�s note and agree with findings and plan as documented in the resident�s note except for changes in my documentation
CAT scan-5 to 6 mm stone at or just to be on the left distal UVJ/bladder trigone. Partially duplicated left renal collecting system with 5 into 6 into 7 mm stone at the superior pole of the ureterovesical junction and may reflect additional
obstructing stone. Mild to moderate bilateral hydronephrosis and hydroureter. No right ureteral stone. Nonobstructing stones in the kidneys bilaterally. Mild bladder wall thickening and adjacent edema.
CVS: S1-S2 normal
Chest: CTA B/L
Abdomen: Soft, NT / Bowel sounds present
Extremities: No edema
# Acute kidney injury on CKD unknown stage ( Unclear if has CKD)
Creatinine elevated since September 2023
Hyperkalemia treated
Continue IV fluids
Possibly postrenal reasons as well
Russ placed.
Hold Myrbetriq and continue tamsulosin
Nephrolithiasis with hydronephrosis--on imaging however per discussion with urology no obstruction in the ureters
Follow creatinine and potassium
Urine sodium indicates renal reason
Creatinine has been elevated since September-unclear if patient also has CKD
Creatinine is improving
Urology and Nephrology consulted.
# Prostate cancer with history of prostatectomy 2022 and radiation treatment in 2023 for biochemical recurrence.
Had bladder neck contracture for which he received radiation treatment. He had cystoscopy and balloon dilatation at [facility] in September 06.
# Coronary disease-with stent and CABG in 2021-continue aspirin, statin, Zetia, metoprolol
# Hyperlipidemia-continue Zetia, statin
# Hypertension-continue metoprolol
# Sleep apnea-CPAP
# Nephrolithiasis with history of lithotripsy
# Migraines
# Diverticulosis
# Obesity with a BMI of 36
# DVT prophylaxis-subcutaneous heparin
Discussed with urology. When ready discharge the patient with Russ catheter and have voiding trial as outpatient with urology office.
Original Note:
Today's Communication/Plan
-
Continue monitoring urine output with Russ catheterization. Awaiting labs to see creatinine and potassium levels
Assessment / Plan
Assessment / Plan
Assessment:
59-year-old male with a past medical history of hypertension and prostate cancer for which he underwent robotic prostatectomy with Dr. Lemus in 2022 then XRT then developed bladder neck contracture after which he had a procedure at [facility] 3 weeks
ago, comes to the [facility] due to recent worsening of renal function. Patient had developed evidence of urinary retention after his procedure and was told to self cath around 1 month ago. He was told to do around every 3 hours
but he has been unable to do so due to being unable to afford supplies. Patient has decreased his oral fluid intake and has not been doing his cath is much as he should be. Patient was admitted for further treatment and underwent ultrasound and CT
scan. Patient started on IV fluids and urology and nephrology were consulted. Patient has been feeling much better after Russ catheterization which drained around 7 L of urine.
Abdomen/Pelvis CT (11/24/2024)-
Moderate left hydronephrosis. Left UPJ stones probably recently passed with residual signs of obstruction. Clinical correlation recommended.
Left UPJ stone as described above.
Nonobstructing bilateral renal stones. Some are decreased in size. Some are increased in size. Some are new. Some have resolved
Mild diffuse bladder wall thickening. This can be seen with cystitis or bladder outlet obstruction.
Focal wall thickening of the anterior left bladder wall with surrounding stranding suggesting inflammation. A mural mass cannot be excluded.
New small fluid collection inferior to the bladder and superior to the pubic symphysis. Probable postsurgical fluid such as a seroma. Infected fluid cannot be excluded. Limited evaluation for infection without IV contrast.The patient has had a
radical prostatectomy in the interim since the previous exam.
Hypodense hepatic lesions likely small cysts or hemangiomas. Increased in number and size.
Mild diverticulosis. Stable
Moderate fecal material in the colon. Progressed
Plan:
#SRI secondary to urinary retention and dehydration
-Creatinine trending down, down to 3.7
-fluids continued
-Continue monitoring BMP
-nephrology consulted, input appreciated
-renal US results as above
-Will see if draining of urine improves kidney function
-CT abdomen pelvis results as above
-Bilateral nonobstructing renal stones seen
-Russ catheter was placed by urology yesterday draining around 8 L of urine
-Continue monitoring BMP following draining of urine
-Creatinine has been increased since September so there might be underlying kidney disease
-Holding Myrbetriq and continuing tamsulosin
# Hyperkalemia
-Continue monitoring as it may be due to urinary retention
-Jump from 5.0-5.5
-Check BMP again
# History of CAD
# History of CABG
# History of cardiac stents
-asa continued
#HLD
-statin continued
#HTN
-metoprolol continued
-BP continues to be increased
-May require increase in medication
#hxt of prostate cancer s/p radiation and prostatectomy
-Flomax continued
-hold mirabegron
DVT Prophylaxis- heparin sq
Full code
Anticipated Discharge: Within 24 hours
Subjective/Interval History
-
Date of Service: November 25, 2024
Patient states that he has been feeling much better since yesterday. He says that he no longer has the fullness in the suprapubic area and has much more relief after Russ catheter drained a lot of urine
Objective Data
-
Labs:
Laboratory Results
11/25/24
06:00
WBC Pending
Hgb Pending
Hct Pending
Plt Count Pending
Sodium Pending
Potassium Pending
Chloride Pending
Carbon Dioxide Pending
BUN Pending
Creatinine Pending
Glucose Pending
Calcium Pending
Vital Signs:
Vital Signs
Temp Pulse Resp BP Pulse Ox
98.5 F 76 18 145/89 96
11/25/24 03:00 11/25/24 03:00 11/25/24 03:00 11/25/24 03:00 11/25/24 03:00
I&O
11/24/24 11/25/24 11/26/24
06:59 06:59 06:59
Intake Total 1620 / 1620 2900 / 2900
Output Total 3000 / 3000 7825 / 7825
Balance -1380 / -1380 -4925 / -4925
Review of Systems
-
History Source: Patient
Constitutional: Denies Fever, Weight Loss, Fatigue, Sleep Disturbance, Night Sweats or Chills
Respiratory: Denies Cough or Trouble Breathing
Cardiac: Denies Chest Pain or Palpitations
Abdomen/GI: Denies Abdominal Pain, Nausea or Vomiting
Genitourinary: Denies Dysuria, Flank Pain or Discharge
Skin: Denies Itching or Rash
Endocrine: Reports No Symptoms
Allergy / Immunology: Reports No Symptoms
Physical Exam
-
General: Well Developed, Well Nourished, No Apparent Distress, Comfortable and Conversant
HEENT: Normocephalic and Atraumatic
Respiratory: Clear to Auscultation and Non Labored Respirations
Cardiac: Regular Rhythm and S1/S2; Negative Murmur
GI: Soft, Nontender, Nondistended and Normal Bowel Sounds
Genito-urinary: Clear Urine and Russ
Musculoskeletal: No Clubbing, No Cyanosis and No Edema
Skin: Warm
Neuro: Awake, Alert, Oriented and No Motor Deficits
Psych: Calm
Data Reviewed
-
Labs: Labs Reviewed by me, Discussed with Physician, Discussed with Nurse and Discussed with Patient
[2024-11-25 07:46] VITALS: BP 166/100
[2024-11-25] MEDS: NSS 1000 IV ×3 (08:21→21:56)
[2024-11-25] MEDS: HEPARIN 5000 UNITS SC ×2 (08:26→20:06)
[2024-11-25] MEDS: TOPROL XL 25 MG PO ×2 (08:26→20:06)
[2024-11-25] MEDS: ZETIA 10 MG PO (08:26)
[2024-11-25] MEDS: LOW STRENGTH ASPIRIN 81 MG PO (08:26)
[2024-11-25] MEDS: FLOMAX 0.4 MG PO ×2 (08:26→20:06)
[2024-11-25 08:35] LABS: Hematocrit 32.2 % (39.0-52.0); Hemoglobin 10.7 g/dL (13.0-18.0); Mean Corp Hgb Conc. 33.2 g/dL (33.0-37.0); Mean Corpuscular Hgb 29.7 pg (27.0-31.0); Mean Corpuscular Volume 89.4 fL (80.0-94.0); Mean Platelet Volume 9.6 fL (7.4-10.4); Platelet Count 201 10^3/uL (130-400); Red Cell Dist. Width 13.9 % (11.5-14.5); White Blood Cell Count 5.8 10^3/uL (4.8-10.8)
[2024-11-25 09:36] LABS: Blood Urea Nitrogen 47 mg/dl (9-20); Calcium 9.5 mg/dl (8.4-10.2); Carbon Dioxide 24 mmol/L (22-30); Chloride 108 mmol/L (98-107); Estimated Creatinine Clearance 35 ml/min; Glucose 108 mg/dl (70-99); Potassium 5.5 mmol/L (3.5-5.1); Sodium 142 mmol/L (135-145); eGFR 20.95
[2024-11-25] MEDS: NORVASC 5 MG PO (11:37)
[2024-11-25] MEDS: LOKELMA 10 GRAM PO (11:37)
[2024-11-25 11:40] VITALS: BP 180/111
--- NOTE | 2024-11-25 12:54 | W.PN.UPDATE ---
Update Note
Progress Note Update
H/o pT3 prostate cancer s/p RALP/BPLND (07/2023)
s/p XRT for biochemical recurrence (spring 2023)
Bladder neck contracture/anastomotic stricture s/p XRT
s/p cystoscopy/balloon dilation ([place], 08/2024)
SRI on CKD
Of note, he underwent a flexible cystoscopy w/ Dr. Garcia ([place]) 3-4 weeks ago - noted to have an open bladder neck w/ small stone in bladder.
Cr noted ~2 at baseline w/ rise to 3.5 in 09/2024.
Of note, patient states he was not able to catheterize regularly in recent weeks due to prohibitive cost.
: normal phallus, 16Fr Russ catheter w/ clear yellow UOP
Plan:
- Trend Cr and post-obstructive diuresis after catheter placement
- Maintain Russ catheter on discharge
- Dr. Morataya will touch base w/ Dr. Garcia (managing stricture) re: bladder management plan
- Plan to resume [facility]IC in 7-10 days w/ outpatient catheter removal
D/w Hospitalist.
[2024-11-25 15:33] VITALS: BP 166/101
--- NOTE | 2024-11-25 17:03 | W.PN.NEPH.PH ---
Today's Communication / Plan
-
IVF
Assessment/Plan
-
IMP:
SRI secondary to urinary retention and dehydration
History of CAD
History of CABG
History of cardiac stents
HLD
HTN
hxt of prostate cancer s/p radiation and prostatectomy
neurogenic bladder
h/o K stones
Plan:
miller per urology
follow BMP
continue IVF
-
-
Date of Service: November 25, 2024
CC / HPI / ROS
-
Chief Complaint:
SRI
History of Present Illness:
Miller in place for obstructive uropathy
SRI/Cr down to 3.3
K high 5.5
BP stable high
Review of Systems:
no CP/SOB
nonoliguric
Labs
-
Labs:
WBC 5.8 10^3/uL (4.8-10.8) 11/25/24 07:54
RBC 3.60 10^6/uL (4.70-6.10) L 11/25/24 07:54
Hgb 10.7 g/dL (13.0-18.0) L 11/25/24 07:54
Hct 32.2 % (39.0-52.0) L 11/25/24 07:54
Plt Count 201 10^3/uL (130-400) 11/25/24 07:54
Sodium 142 mmol/L (135-145) 11/25/24 07:54
Chloride 108 mmol/L (98-107) H 11/25/24 07:54
Carbon Dioxide 24 mmol/L (22-30) 11/25/24 07:54
BUN 47 mg/dl (9-20) H 11/25/24 07:54
Creatinine 3.3 mg/dL (0.7-1.3) H 11/25/24 07:54
eGFR 20.95 11/25/24 07:54
Glucose 108 mg/dl (70-99) H 11/25/24 07:54
Calcium 9.5 mg/dl (8.4-10.2) 11/25/24 07:54
Albumin 4.5 g/dl (3.5-5.0) 11/23/24 16:18
Physical Exam
-
Vital Signs:
Vital Signs
Temp Pulse Resp BP Pulse Ox
98.3 F 85 18 166/101 97
11/25/24 15:33 11/25/24 15:33 11/25/24 15:33 11/25/24 15:33 11/25/24 15:33
Cardiovascular:: Regular rate and rhythm
Respiratory:: Bilateral: CTA
Lung Excursion:: Normal
Abdomen:: Nontender and Soft
Bowel Sounds:: Normal
Extremity Edema:: None: Bilateral:
[2024-11-25] MEDS: LIPITOR 80 MG PO (17:13)
[2024-11-25 17:47] LABS: Potassium 5.1 mmol/L (3.5-5.1)
[2024-11-25 19:00] VITALS: BP 181/97
[2024-11-25 23:00] VITALS: BP 192/107
[2024-11-26 00:29] VITALS: BP 180/100
[2024-11-26 03:00] VITALS: BP 161/89
[2024-11-26] MEDS: NSS 1000 IV (06:12)
[2024-11-26 07:20] LABS: Blood Urea Nitrogen 40 mg/dl (9-20); Calcium 9.3 mg/dl (8.4-10.2); Carbon Dioxide 26 mmol/L (22-30); Chloride 106 mmol/L (98-107); Estimated Creatinine Clearance 43 ml/min; Glucose 98 mg/dl (70-99); Potassium 4.6 mmol/L (3.5-5.1); Sodium 142 mmol/L (135-145); eGFR 26.66
[2024-11-26] MEDS: HEPARIN 5000 UNITS SC ×2 (07:28→21:11)
[2024-11-26] MEDS: LOW STRENGTH ASPIRIN 81 MG PO (07:29)
[2024-11-26] MEDS: NORVASC 5 MG PO (07:29)
[2024-11-26] MEDS: FLOMAX 0.4 MG PO ×2 (07:29→21:13)
[2024-11-26] MEDS: ZETIA 10 MG PO (07:29)
[2024-11-26] MEDS: TOPROL XL 25 MG PO ×2 (07:29→21:13)
[2024-11-26 07:56] VITALS: BP 137/88
--- NOTE | 2024-11-26 10:22 | W.PN.NEPH.PH ---
Today's Communication / Plan
-
cap IVF
Assessment/Plan
-
IMP:
SRI secondary to urinary retention and dehydration
History of CAD
History of CABG
History of cardiac stents
HLD
HTN
hxt of prostate cancer s/p radiation and prostatectomy
neurogenic bladder
h/o K stones
Plan:
miller per urology
follow BMP
cap IVF
would like to see postobstructive diuresis slow a little more before dc
-
-
Date of Service: November 26, 2024
CC / HPI / ROS
-
Chief Complaint:
SRI
History of Present Illness:
Miller in place for obstructive uropathy
SRI/Cr down to 2.7
K normal
BP stable
Review of Systems:
no CP/SOB
nonoliguric
Labs
-
Labs:
WBC 5.8 10^3/uL (4.8-10.8) 11/25/24 07:54
RBC 3.60 10^6/uL (4.70-6.10) L 11/25/24 07:54
Hgb 10.7 g/dL (13.0-18.0) L 11/25/24 07:54
Hct 32.2 % (39.0-52.0) L 11/25/24 07:54
Plt Count 201 10^3/uL (130-400) 11/25/24 07:54
Sodium 142 mmol/L (135-145) 11/26/24 06:38
Potassium 4.6 mmol/L (3.5-5.1) 11/26/24 06:38
Chloride 106 mmol/L (98-107) 11/26/24 06:38
Carbon Dioxide 26 mmol/L (22-30) 11/26/24 06:38
BUN 40 mg/dl (9-20) H 11/26/24 06:38
Creatinine 2.7 mg/dL (0.7-1.3) H 11/26/24 06:38
eGFR 26.66 11/26/24 06:38
Glucose 98 mg/dl (70-99) 11/26/24 06:38
Calcium 9.3 mg/dl (8.4-10.2) 11/26/24 06:38
Albumin 4.5 g/dl (3.5-5.0) 11/23/24 16:18
Physical Exam
-
Vital Signs:
Vital Signs
Temp Pulse Resp BP Pulse Ox
98.1 F 76 18 137/88 98
11/26/24 07:56 11/26/24 07:56 11/26/24 07:56 11/26/24 07:56 11/26/24 07:56
Cardiovascular:: Regular rate and rhythm
Respiratory:: Bilateral: CTA
Lung Excursion:: Normal
Abdomen:: Nontender and Soft
Bowel Sounds:: Normal
Extremity Edema:: None: Bilateral:
--- NOTE | 2024-11-26 10:37 | W.PN.URO.CBU ---
Today's Communication / Plan
-
teach pt if not sure how to use miller and leg bags
Assessment / Plan
-
sandeep returning to [facility] with miller Home when cleared by hospitalist with miller
Diagnosis
-
Date of Service: November 26, 2024
-
Patient Diagnosis:sandeep high pressure bladder s/p prostae cancer tx
Post Op Day:
Subjective
-
tiolerating miller
Objective
-
Vital Signs
Temp Pulse Resp BP Pulse Ox
98.1 F 76 18 137/88 98
11/26/24 07:56 11/26/24 07:56 11/26/24 07:56 11/26/24 07:56 11/26/24 07:56
Intake and Output
11/25/24 11/26/24 11/27/24
06:59 06:59 06:59
Intake Total 2900 / 2900 3180 / 3180
Output Total 7825 / 7825 5850 / 5850 550 / 550
Balance -4925 / -4925 -2670 / -2670 -550 / -550
Intake:
Oral fluids 1400 / 1400 1680 / 1680
IV fluids (Total) 1500 / 1500 1500 / 1500
Output:
Urine, Miller 7825 / 7825 5850 / 5850 550 / 550
Other:
Number of approximated MODERATE 3
amounts of urine
Laboratory Results
11/25/24 07:54
11/26/24 06:38
Review of Systems
-
: Difficulty Voiding
Physical Exam
-
General - well developed, well nourished, no acute distress
Chest - clear bilaterally
Abdomen - soft, non-tender, positive bowel sounds, no CVAT, no incisional pain or distention
Genitalia - normal
Rectal - normal
Skin - warm & dry with no rash
Neuro - AOx3, no motor deficits
Extremities - no clubbing, no cyanosis, no edema
Incision - clean, dry
Dressing - clean, dry, intact
Care Review
Data Reviewed
Discussed with: Nursing
[2024-11-26 11:27] VITALS: BP 131/80
--- NOTE | 2024-11-26 12:38 | CM ---
Alert awake oriented patient who lives with his SO Lucille who lives in a 2 story home with 2 step to enter and 10 steps to bed and bathroom. He is independent in driving and in all activities of daily living.He was offered VN he declined need.Pt self
st caths
DH VN hx / No SNF history
Pharmacy [facility] Maribel Solorzano
PCP DR Garcia
PLAN Home Declined VN
--- NOTE | 2024-11-26 13:33 | W.PN.HOSP.TC ---
Today's Communication/Plan
-
Holding further IV fluids
Check creatinine tomorrow
If stable or going down will discharge
Assessment / Plan
Assessment / Plan
59-year-old male with abnormal outpatient labs patient was seen by urology and started on self-catheterization regimen 1 month ago he was advised to do it every 3 hours but did not have the supply.
Seen earlier today. Late documentation
I saw and evaluated the patient. I reviewed the resident�s note and agree with findings and plan as documented in the resident�s note except for changes in my documentation
CAT scan-5 to 6 mm stone at or just to be on the left distal UVJ/bladder trigone. Partially duplicated left renal collecting system with 5 into 6 into 7 mm stone at the superior pole of the ureterovesical junction and may reflect additional
obstructing stone. Mild to moderate bilateral hydronephrosis and hydroureter. No right ureteral stone. Nonobstructing stones in the kidneys bilaterally. Mild bladder wall thickening and adjacent edema.
CVS: S1-S2 normal
Chest: CTA B/L
Abdomen: Soft, NT / Bowel sounds present
Extremities: No edema
# Acute kidney injury on CKD unknown stage ( Unclear if has CKD)
Creatinine elevated since September 2023
Hyperkalemia treated
Stop IV fluids to see if postobstructive diuresis is rising creatinine
Possibly postrenal reasons as well
Russ placed. To remain for discharge
Hold Myrbetriq and continue tamsulosin
Nephrolithiasis with hydronephrosis--on imaging however per discussion with urology no obstruction in the ureters
Follow creatinine and potassium
Urine sodium indicates renal reason
Creatinine has been elevated since September-unclear if patient also has CKD
Creatinine is improving
Urology and Nephrology consulted.
# Prostate cancer with history of prostatectomy 2022 and radiation treatment in 2023 for biochemical recurrence.
Had bladder neck contracture for which he received radiation treatment. He had cystoscopy and balloon dilatation at [place] in August 2024.
# Coronary disease-with stent and CABG in 2021-continue aspirin, statin, Zetia, metoprolol
# Hyperlipidemia-continue Zetia, statin
# Hypertension-continue metoprolol
# Sleep apnea-CPAP
# Nephrolithiasis with history of lithotripsy
# Migraines
# Diverticulosis
# Obesity with a BMI of 36
# DVT prophylaxis-subcutaneous heparin
Discussed with nephrology and Urology
Anticipated Discharge: Within 24 hours
Subjective/Interval History
-
Date of Service: November 26, 2024
Objective Data
-
Labs:
Laboratory Results
11/26/24
06:38
Sodium 142
Potassium 4.6
Chloride 106
Carbon Dioxide 26
BUN 40 H
Creatinine 2.7 H
Glucose 98
Calcium 9.3
Vital Signs:
Vital Signs
Temp Pulse Resp BP Pulse Ox
97.9 F 78 18 131/80 97
11/26/24 11:27 11/26/24 11:27 11/26/24 11:27 11/26/24 11:27 11/26/24 11:27
I&O
11/25/24 11/26/24 11/27/24
06:59 06:59 06:59
Intake Total 2900 / 2900 3180 / 3180
Output Total 7825 / 7825 5850 / 5850 550 / 550
Balance -4925 / -4925 -2670 / -2670 -550 / -550
[2024-11-26 15:31] VITALS: BP 162/83
[2024-11-26] MEDS: LIPITOR 80 MG PO (17:29)
[2024-11-26 23:26] VITALS: BP 161/99
[2024-11-27 07:29] LABS: Blood Urea Nitrogen 39 mg/dl (9-20); Calcium 9.5 mg/dl (8.4-10.2); Carbon Dioxide 24 mmol/L (22-30); Chloride 104 mmol/L (98-107); Estimated Creatinine Clearance 43 ml/min; Glucose 92 mg/dl (70-99); Potassium 4.2 mmol/L (3.5-5.1); Sodium 140 mmol/L (135-145); eGFR 26.66
[2024-11-27 07:32] VITALS: BP 146/93
[2024-11-27] MEDS: ZETIA 10 MG PO (08:10)
[2024-11-27] MEDS: HEPARIN 5000 UNITS SC (08:10)
[2024-11-27] MEDS: NORVASC 5 MG PO (08:10)
[2024-11-27] MEDS: TOPROL XL 25 MG PO (08:10)
[2024-11-27] MEDS: LOW STRENGTH ASPIRIN 81 MG PO (08:10)
[2024-11-27] MEDS: FLOMAX 0.4 MG PO (08:10)
--- NOTE | 2024-11-27 09:40 | W.PN.NEPH.PH ---
Today's Communication / Plan
-
follow BMP
Assessment/Plan
-
IMP:
SRI secondary to urinary retention and dehydration
History of CAD
History of CABG
History of cardiac stents
HLD
HTN
hxt of prostate cancer s/p radiation and prostatectomy
neurogenic bladder
h/o K stones
Plan:
miller per urology
follow BMP
Could be followed as an outpatient from a renal perspective at this time. He would require a metabolic panel midweek
-
-
Date of Service: November 27, 2024
CC / HPI / ROS
-
Chief Complaint:
SRI
History of Present Illness:
Miller in place for obstructive uropathy
SRI/Cr down to 2.7 stable today, BUN still falling
K normal
BP stable
Review of Systems:
no CP/SOB
nonoliguric
Labs
-
Labs:
WBC 5.8 10^3/uL (4.8-10.8) 11/25/24 07:54
RBC 3.60 10^6/uL (4.70-6.10) L 11/25/24 07:54
Hgb 10.7 g/dL (13.0-18.0) L 11/25/24 07:54
Hct 32.2 % (39.0-52.0) L 11/25/24 07:54
Plt Count 201 10^3/uL (130-400) 11/25/24 07:54
Sodium 140 mmol/L (135-145) 11/27/24 05:46
Potassium 4.2 mmol/L (3.5-5.1) 11/27/24 05:46
Chloride 104 mmol/L (98-107) 11/27/24 05:46
Carbon Dioxide 24 mmol/L (22-30) 11/27/24 05:46
BUN 39 mg/dl (9-20) H 11/27/24 05:46
Creatinine 2.7 mg/dL (0.7-1.3) H 11/27/24 05:46
eGFR 26.66 11/27/24 05:46
Glucose 92 mg/dl (70-99) 11/27/24 05:46
Calcium 9.5 mg/dl (8.4-10.2) 11/27/24 05:46
Albumin 4.5 g/dl (3.5-5.0) 11/23/24 16:18
Physical Exam
-
Vital Signs:
Vital Signs
Temp Pulse Resp BP Pulse Ox
97.3 F 75 18 146/93 98
11/27/24 07:32 11/27/24 07:32 11/27/24 07:32 11/27/24 07:32 11/27/24 07:32
Cardiovascular:: Regular rate and rhythm
Respiratory:: Bilateral: CTA
Lung Excursion:: Normal
Abdomen:: Nontender and Soft
Bowel Sounds:: Normal
Extremity Edema:: +1: Bilateral:
--- NOTE | 2024-11-27 10:17 | W.PN.HOSP.TC ---
Today's Communication/Plan
-
discharge
Assessment / Plan
Assessment / Plan
59-year-old male with abnormal outpatient labs patient was seen by urology and started on self-catheterization regimen 1 month ago he was advised to do it every 3 hours but did not have the supply.
Seen earlier today. Late documentation
CAT scan-5 to 6 mm stone at or just to be on the left distal UVJ/bladder trigone. Partially duplicated left renal collecting system with 5 into 6 into 7 mm stone at the superior pole of the ureterovesical junction and may reflect additional
obstructing stone. Mild to moderate bilateral hydronephrosis and hydroureter. No right ureteral stone. Nonobstructing stones in the kidneys bilaterally. Mild bladder wall thickening and adjacent edema.
CVS: S1-S2 normal
Chest: CTA B/L
Abdomen: Soft, NT / Bowel sounds present
Extremities: No edema
# Acute kidney injury on CKD unknown stage ( Unclear if has CKD)
Creatinine elevated since September 2023- 2.0
Hyperkalemia treated
Creatinine is stable
Possibly postrenal reasons as well
Russ placed. To remain for discharge
Hold Myrbetriq and continue tamsulosin-patient aware
Nephrolithiasis with hydronephrosis--on imaging however per discussion with urology no obstruction in the ureters
Follow creatinine and potassium-lab work as outpatient BMP every 3 days x 2-prescription given
Urine sodium indicates renal reason
Creatinine has been elevated since September-unclear if patient also has CKD
Creatinine is stable despite IV fluids discontinued
Urology and Nephrology following
# Prostate cancer with history of prostatectomy 2022 and radiation treatment in 2023 for biochemical recurrence.
Had bladder neck contracture for which he received radiation treatment. He had cystoscopy and balloon dilatation at [place] in August 2024.
# Coronary disease-with stent and CABG in 2021-continue aspirin, statin, Zetia, metoprolol
# Hyperlipidemia-continue Zetia, statin
# Hypertension-continue metoprolol, amlodipine started
# Sleep apnea-CPAP
# Nephrolithiasis with history of lithotripsy
# Migraines
# Diverticulosis
# Obesity with a BMI of 36
# DVT prophylaxis-subcutaneous heparin
Discussed with nephrology-okay for discharge
Even though no bowel movements charted patient stated that he had a bowel movement yesterday.
Patient is aware about all the follow-up needs-nursing aware to give a leg bag for Russ
Prescription given
Prescription for amlodipine sent
More than 30 minutes spent in discharge including
Final examination of the patient
Summarizing hospital stay
Instructions for continuing care to all relevant caregivers
Preparation of discharge records, prescriptions, and referral forms
Total time spent (in minutes): 37 min
Anticipated Discharge: Today
Subjective/Interval History
-
Date of Service: November 27, 2024
Objective Data
-
Labs:
Laboratory Results
11/27/24
05:46
Sodium 140
Potassium 4.2
Chloride 104
Carbon Dioxide 24
BUN 39 H
Creatinine 2.7 H
Glucose 92
Calcium 9.5
Vital Signs:
Vital Signs
Temp Pulse Resp BP Pulse Ox
97.3 F 75 18 146/93 98
11/27/24 07:32 11/27/24 07:32 11/27/24 07:32 11/27/24 07:32 11/27/24 07:32
I&O
11/26/24 11/27/24 11/28/24
06:59 06:59 06:59
Intake Total 3180 / 3180
Output Total 5850 / 5850 3350 / 3350
Balance -2670 / -2670 -3350 / -3350
--- NOTE | 2024-11-27 11:15 | W.DS.TRANS ---
Addendum entered and electronically signed by Zeeshan Samuel MD 11/27/24 15:46:
Dictation- [id number]
Original Note:
DC Summary - [employer]
-
Discharge Instructions:
Discharge Diagnosis/Procedures Acute kidney injury
Prostate cancer with history of prostatectomy
2022 and radiation treatment
Coronary disease-with stent and CABG in 2021
Hyperlipidemia
Hypertension
Hypodense hepatic lesions-hemangiomas or cysts
Diverticulosis
Diet 2 Gram Sodium,Low Cholesterol
Additional Diets 2 gram Postassium
Activity No restrictions
Driving Restrictions As prior to admission
Bathing Restrictions None
Blood Work BMP every 3 days times 2.
Specialty Instructions Weigh Daily
Instructions:
Stand-Alone Forms:
Changes to Home Medications: Yes
Discharge Medications:
DC Medications w/original date entered in [employer]
metoprolol succinate 50 mg tablet,extended release 24 hr 25 mg PO BID Blood Pressure 06/04/23
aspirin 81 mg chewable tablet 81 mg PO DAILY Blood Clot Prevention/Tx 06/11/23
atorvastatin 80 mg tablet 80 mg PO QPM High Cholesterol 06/11/23
mirabegron 50 mg tablet,extended release 24 hr 50 mg PO DAILY 11/23/24
amlodipine 5 mg tablet 5 mg PO DAILY Blood pressure #30 tabs 11/27/24
ezetimibe 10 mg tablet 10 mg PO DAILY High cholesterol #0 tabs 11/27/24
tamsulosin 0.4 mg capsule 0.4 mg PO BID Urinary issue #0 caps 11/27/24
Home Medication Changes
new Amlodipine
Pending Results: No
--- NOTE | 2024-11-27 11:39 | CM ---
MD entered order for discharge.
Spoke with pt he said he agreed with dc today.
Pt drove him self home.
Pt declined need for VN .
PLAN Home no needs .
[2024-11-27 11:43] VITALS: BP 134/86
--- NOTE | 2024-11-27 11:45 | PTCARENOTE ---
Miller leg bag applied to pt and teaching given. Pt has experience w/ miller care in the past. Pt ambulatory to hospital exit w/o issue.
== END 2024-11-27 11:45 | disposition home or self-care (01) | DRG 684 ==
LOC: 1 ACUTE 20:37
PROVIDERS: Emergency Medicine; Registered Nurse; ADMITTING PHYSICIAN Hospitalist; ATTENDING PHYSICIAN Hospitalist; CONSULT PHYSICIAN Internal Medicine; CONSULT PHYSICIAN Specialist; EMERGENCY PHYSICIAN Emergency Medicine; FAMILY PHYSICIAN Family Medicine
PROC: 5A09357 Assistance with Respiratory Ventilation, Less than 24 Consecutive Hours, Continuous Positive Airway Pressure (ICD-10-PCS; 2024-11-23)
PROC: 0T9B70Z Drainage of Bladder with Drainage Device, Via Natural or Artificial Opening (ICD-10-PCS; 2024-11-24)
DX: N17.9 Acute kidney failure, unspecified (principal); N13.1 Hydronephrosis with ureteral stricture, not elsewhere classified; I12.9 Hypertensive chronic kidney disease with stage 1 through stage 4 chronic kidney disease, or unspecified chronic kidney disease; N18.9 Chronic kidney disease, unspecified; E78.00 Pure hypercholesterolemia, unspecified; E87.5 Hyperkalemia; E86.0 Dehydration; N40.0 Benign prostatic hyperplasia without lower urinary tract symptoms; N31.9 Neuromuscular dysfunction of bladder, unspecified; E66.9 Obesity, unspecified; G47.33 Obstructive sleep apnea (adult) (pediatric); D18.03 Hemangioma of intra-abdominal structures; K57.30 Diverticulosis of large intestine without perforation or abscess without bleeding; I25.10 Atherosclerotic heart disease of native coronary artery without angina pectoris; Z87.442 Personal history of urinary calculi; Z85.46 Personal history of malignant neoplasm of prostate; Z92.3 Personal history of irradiation; Z79.82 Long term (current) use of aspirin; Z79.1 Long term (current) use of non-steroidal anti-inflammatories (NSAID); Z87.891 Personal history of nicotine dependence; Z95.1 Presence of aortocoronary bypass graft; Z95.5 Presence of coronary angioplasty implant and graft; I25.2 Old myocardial infarction; Z68.36 Body mass index [BMI] 36.0-36.9, adult; Z90.79 Acquired absence of other genital organ(s)
CPT/HCPCS: 36415; 51798; 74176; 76770; 80048; 80053; 80061; 81003; 81015; 84132; 84153; 84300; 85025; 85027; 87086; 93005; 99285

== ENCOUNTER → 2024-11-30 08:15 | Outpatient (REF) | payer BC, SELFPAY ==
[2024-11-30 10:40] LABS: Blood Urea Nitrogen 44 mg/dl (9-20); Calcium 10.2 mg/dl (8.4-10.2); Carbon Dioxide 26 mmol/L (22-30); Chloride 100 mmol/L (98-107); Glucose 98 mg/dl (70-99); Sodium 140 mmol/L (135-145); eGFR 24.46
== END ==
LOC: REG 08:15
PROVIDERS: ATTENDING PHYSICIAN Hospitalist; FAMILY PHYSICIAN Family Medicine; REFERRING PHYSICIAN Surgery
DX: Z09 Encounter for follow-up examination after completed treatment for conditions other than malignant neoplasm (principal)
CPT/HCPCS: 36415; 80048

== ENCOUNTER → 2024-12-05 08:07 | Outpatient (REF) | payer BC, SELFPAY ==
[2024-12-05 13:02] LABS: Blood Urea Nitrogen 42 mg/dl (9-20); Calcium 10.2 mg/dl (8.4-10.2); Carbon Dioxide 25 mmol/L (22-30); Chloride 108 mmol/L (98-107); Glucose 123 mg/dl (70-99); Potassium 5.5 mmol/L (3.5-5.1); Sodium 147 mmol/L (135-145); eGFR 22.58
== END ==
LOC: REG 08:07
PROVIDERS: ATTENDING PHYSICIAN Hospitalist; FAMILY PHYSICIAN Family Medicine; REFERRING PHYSICIAN Surgery
DX: Z09 Encounter for follow-up examination after completed treatment for conditions other than malignant neoplasm (principal)
CPT/HCPCS: 36415; 80048

== ENCOUNTER 2024-12-12 17:03 | Outpatient (RCR) | payer BC, SELFPAY | END 2024-12-12 23:59 | disposition home or self-care (01) | LOC: RPT 17:03 | PROVIDERS: ATTENDING PHYSICIAN Family Medicine Geriatric Medicine | DX: M62.89 Other specified disorders of muscle (principal); Z73.6 Limitation of activities due to disability; C61 Malignant neoplasm of prostate; R33.9 Retention of urine, unspecified; Z90.79 Acquired absence of other genital organ(s) | CPT/HCPCS: 97110; 97140; 97530 ==

== ENCOUNTER → 2024-12-14 09:13 | Outpatient (REF) | payer BC, SELFPAY | LOC: HWRAD 09:13 | PROVIDERS: ATTENDING PHYSICIAN Surgery; FAMILY PHYSICIAN Family Medicine; REFERRING PHYSICIAN Urology | DX: N31.9 Neuromuscular dysfunction of bladder, unspecified (principal) | CPT/HCPCS: 76770 ==

== ENCOUNTER 2024-12-15 16:55 | Outpatient (RCR) | payer BC, SELFPAY | END 2024-12-15 23:59 | disposition home or self-care (01) | LOC: RPT 16:55 | PROVIDERS: ATTENDING PHYSICIAN Family Medicine Geriatric Medicine | DX: M62.89 Other specified disorders of muscle (principal); Z73.6 Limitation of activities due to disability; C61 Malignant neoplasm of prostate; R33.9 Retention of urine, unspecified; Z90.79 Acquired absence of other genital organ(s) | CPT/HCPCS: 97110 ==

== ENCOUNTER → 2025-01-19 10:16 | Outpatient (REF) | payer BC, SELFPAY ==
[2025-01-19 12:23] LABS: Blood Urea Nitrogen 25 mg/dl (9-20); Carbon Dioxide 28 mmol/L (22-30); Chloride 107 mmol/L (98-107); Glucose 163 mg/dl (70-99); Potassium 4.9 mmol/L (3.5-5.1); Sodium 145 mmol/L (135-145); eGFR 40.64
[2025-01-19 12:47] LABS: PSA, Total - Diagnostic < 0.06 ng/ml (0.0-4.0)
[2025-01-22 05:35] LABS: % Free Testosterone 2.1 % (1.6-2.9); Free Testosterone 67 pg/mL (47-244); Sex Hormone Binding Globulin 23 nmol/L (19-76); Total Testosterone 312 ng/dL (300-890)
== END ==
LOC: REG 10:16
PROVIDERS: ATTENDING PHYSICIAN Family Medicine Geriatric Medicine; FAMILY PHYSICIAN Urology
DX: C61 Malignant neoplasm of prostate (principal); Z79.818 Long term (current) use of other agents affecting estrogen receptors and estrogen levels; N35.919 Unspecified urethral stricture, male, unspecified site
CPT/HCPCS: 36415; 80048; 84153; 84270; 84402; 84403

== ENCOUNTER → 2025-03-30 10:35 | Outpatient (REF) | payer BC, SELFPAY ==
[2025-03-30 12:21] LABS: Hematocrit 34.8 % (39.0-52.0); Hemoglobin 10.8 g/dL (13.0-18.0); Mean Corp Hgb Conc. 31.0 g/dL (33.0-37.0); Mean Corpuscular Volume 87.4 fL (80.0-94.0); Platelet Count 303 10^3/uL (130-400); Red Cell Dist. Width 15.5 % (11.5-14.5)
[2025-03-30 13:39] LABS: Albumin 4.1 g/dl (3.5-5.0); Blood Urea Nitrogen 23 mg/dl (9-20); Calcium 9.5 mg/dl (8.4-10.2); Carbon Dioxide 28 mmol/L (22-30); Chloride 106 mmol/L (98-107); Glucose 110 mg/dl (70-99); Potassium 5.0 mmol/L (3.5-5.1); Sodium 140 mmol/L (135-145); eGFR 46.15
== END ==
LOC: REG 10:35
PROVIDERS: ATTENDING PHYSICIAN Internal Medicine; REFERRING PHYSICIAN Urology
DX: N17.9 Acute kidney failure, unspecified (principal)
CPT/HCPCS: 36415; 80069; 83970; 85027

== ENCOUNTER → 2025-04-10 07:56 | Outpatient (REF) | payer BC, SELFPAY | LOC: HWRAD 07:56 | PROVIDERS: ATTENDING PHYSICIAN Urology; FAMILY PHYSICIAN Family Medicine | DX: N35.919 Unspecified urethral stricture, male, unspecified site (principal) | CPT/HCPCS: 76770 ==

== ENCOUNTER → 2025-05-31 08:15 | Outpatient (REF) | payer BC, SELFPAY ==
[2025-05-31 09:45] LABS: Blood Urea Nitrogen 26 mg/dl (9-20); Calcium 9.6 mg/dl (8.4-10.2); Carbon Dioxide 28 mmol/L (22-30); Chloride 109 mmol/L (98-107); Glucose 136 mg/dl (70-99); Potassium 4.7 mmol/L (3.5-5.1); Sodium 145 mmol/L (135-145); eGFR 46.15
== END ==
LOC: REG 08:15
PROVIDERS: ATTENDING PHYSICIAN Family Medicine
DX: N35.919 Unspecified urethral stricture, male, unspecified site (principal)
CPT/HCPCS: 36415; 80048

== ENCOUNTER → 2025-08-03 07:48 | Outpatient (REF) | payer BC, SELFPAY ==
[2025-08-03 10:56] LABS: PSA, Total - Screen < 0.06 ng/ml (0.0-4.0)
== END ==
LOC: REG 07:48
PROVIDERS: ATTENDING PHYSICIAN Family Medicine Geriatric Medicine; FAMILY PHYSICIAN Family Medicine
DX: Z12.5 Encounter for screening for malignant neoplasm of prostate (principal); C61 Malignant neoplasm of prostate
CPT/HCPCS: 36415; G0103